=== PATIENT | female | born 1950 | race Caucasian/White ===

== ENCOUNTER → 2018-01-13 10:41 | Outpatient (CLI) | payer OTHER, SELFPAY ==
--- NOTE | 2018-01-14 08:42 | ONE_ITS ---
OCCUPATIONAL MEDICINE DATE OF SERVICE January 13, 2018 CHIEF COMPLAINT Bilateral wrist pain (left-hand dominant). ASSESSMENT 1. Bilateral carpal tunnel syndrome. 2. Bilateral epicondylitis. 3. Bilateral shoulder pain. PLAN 1. Work restrictions per work status form. 2. Bilateral wrist splints. 3. PT consult. ROM of shoulders, elbows, wrists and phalanges pending first appointment. 4. Ibuprofen 800 mg t.i.d. (42). Up To Date literature provided. 5. Followup in Occupational Medicine one week. Return to clinic sooner or ED, if condition worsens. More than 50% of this visit spent in the planning and coordination of care. Plan of care reviewed with the patient who verbalized understanding and agreement. 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 SUBJECTIVE Shama presents with complaints of bilateral wrist pain. Approximately five to six weeks ago, the beginning of November 2017, she noted a slight numb sensation and loss of feeling in her right hand. She purchased wrist splints from [employer] because she thought she might have carpal tunnel syndrome and had heard wrist splints were helpful. The splints helped quite a bit. Approximately two weeks later, she was using a machine that required multiple tight gripping motions of her right hand, as well as repetitive wrist rotation. The discomfort in her right hand increased to the point she began using her left hand instead. In spite of using her left hand, her right did not improve and her left began to yield discomfort within the week. Yesterday, she formally informed her employer of her discomfort, but states the employer has been aware since November 2017, when she began wearing the wrist splints. Currently the discomfort = 6/10 and is described as numb and tingling with electrical shocks, the right hand being worse than the left. Grasping the steering wheel of her vehicle and turning it increases discomfort. Shama has been self medicating with OTC arthritis medication, which has provided some relief. Shama denies prior wrist injury or surgery. She does note her shoulders began to bother her the spring. REVIEW OF SYSTEMS Denies headache, visual changes. Denies chest pain, palpitations. Denies shortness of breath, dyspnea. Denies GI/ distress. PAST MEDICAL HISTORY Vertigo sinus related. MEDICATIONS OTC arthritis medication, does not recall the name. ALLERGIES Sulfa. SOCIAL HISTORY ETOH - None. Tobacco - None. Exercise with employment. Single. Education - High school graduate. OBJECTIVE VITAL SIGNS: 140/90, 99.6 -- 64 -- 18. Height 5 feet 4.5 inches. Weight 154. BMI 26.4. PHQ-9 = 3. GENERAL: 67-year-old white female. Alert, oriented x3. Conversation appropriate. Appears fatigued. Presented with bilateral wrist splints in placed , removed for exam. CARDIAC: HRR. No murmurs or extra heart sounds. RESPIRATORY: Lungs bilaterally CTA. Respirations unlabored. UPPER EXTREMITIES: No evidence of edema, erythema or ecchymoses bilaterally. Rounded posture. Skin pink in color, warm and dry to touch. Brachial, radial, ulnar pulses 1+ bilaterally. Biceps, triceps, brachioradialis reflexes 1+ bilaterally. Biceps and triceps strength test strong and equal bilaterally; loose hand grasp bilaterally. Demonstrated ability to lift 1-pound weight without discomfort, however, discomfort noted with 3-pound weight bilaterally. SHOULDERS: Left ROM limited to 110 degrees, then complains of discomfort. Right ROM limited to 140 degrees, then with complaints of discomfort. Bony prominences and muscular nontender to palpation, except for left superior trapezius and periscapular region. ELBOWS: ROM within normal limits bilaterally. All bony prominences and muscular nontender to palpation, except for lateral epicondyle tendon and brachioradialis muscles bilaterally. Palpation of left brachioradialis muscle yielded significant discomfort. Positive Tinel at left triceps, negative right. HANDS/WRISTS - Wrists ROM limited to a few degrees due to discomfort. Phalanges ROM limited by discomfort. Positive Phalen's at wrist bilaterally. EDUCATION 1. symptoms appear related to repetitive use. 2. Conservative management is indicated and usually yields good results.
== END ==
PROVIDERS: PCP Physician Assistant Medical; Visit Provider Nurse Practitioner Family
DX: M25.531 Pain in right wrist (principal); M25.532 Pain in left wrist; G56.01 Carpal tunnel syndrome, right upper limb; G56.02 Carpal tunnel syndrome, left upper limb; M25.511 Pain in right shoulder; M77.11 Lateral epicondylitis, right elbow; M77.12 Lateral epicondylitis, left elbow; M25.512 Pain in left shoulder; Y99.0 Civilian activity done for income or pay; X50.3XXA Overexertion from repetitive movements, initial encounter
CPT/HCPCS: 99203; L3908

== ENCOUNTER → 2018-01-20 13:20 | Outpatient (CLI) | payer OTHER, SELFPAY ==
--- NOTE | 2018-01-23 12:24 | ONE_ITS ---
OCCUPATIONAL MEDICINE DATE OF SERVICE January 20, 2018 CHIEF COMPLAINT Bilateral wrist pain (left-hand dominant). ASSESSMENT 1. Bilateral carpal tunnel syndrome. 2. Bilateral epicondylitis. 3. Bilateral shoulder pain. PLAN 1. Work restrictions per work status form. 2. Bilateral wrist splints. 3. Continue PT. 4. Ibuprofen 800 mg t.i.d. 5. Occupational Medicine followup appointment in one week, return to clinic sooner if condition worsens. More than 50% of this visit spent in the planning and coordination of care. Plan of care reviewed with the patient who verbalized understanding and agreement. 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 SUBJECTIVE Shama presents for f/u of bilateral wrist pain, elbow and shoulder pain. States no improvement noted. Last night left work at 1900 four hours early because she was experiencing significant discomfort and awakened in discomfort three times during the night. This morning, she had finger swelling to the point she could only make a claw motion for a fist. For the past week, she has been performing duties that require lifting, holding, then placing small lightweight pieces. She informed her employer these repetitive duties caused her discomfort, but was not offered alternative duties, so she continued performing them. Has had two PT appointments, good relief noted with therapeutic modalities. Continues with ibuprofen t.i.d. uncertain if any relief due to significant discomfort. Has problems opening blister pack. Has difficulty holding a steering wheel and lifting small objects. Currently, the discomfort has diminished to 2/10 and the numb, tingling and electrical shocks continue, but to a lesser intensity. Right hand is worse than left. REVIEW OF SYSTEMS Denies headache, visual changes. Denies chest pain, palpitations. Denies shortness of breath, dyspnea. Denies GI/ distress. PAST MEDICAL HISTORY Vertigo sinus related. MEDICATIONS Ibuprofen 800 mg t.i.d. ALLERGIES Sulfa. SOCIAL HISTORY ETOH - None. Tobacco - None. Exercise with employment. Single. Education - High school graduate. OBJECTIVE GENERAL: 67-year-old white female. Allert, oriented x3. Conversation appropriate. Appears less fatigued, smiling. Presented with bilateral wrist splints in placed, which were removed for exam. UPPER EXTREMITIES: Rounded posture. Hand grasps remains loose, but stronger than last week. SHOULDERS: Left ROM limited to 90 degrees, then complains of discomfort. Right ROM limited to 130 degrees, then with complaints of discomfort. ELBOWS: ROM within normal limits bilaterally. Lateral epicondyle tendons and brachioradialis muscles remain tender bilaterally. Moderate palpation of left brachioradialis muscle yields significant discomfort. Tinel at left triceps now negative, remains negative on the right. HANDS/WRISTS: Wrists ROM improved, but remains limited to a few degrees. Phalanges - ROM almost within normal limits. Phalen positive at 15 seconds bilaterally. EDUCATION Discomfort is an indication to stop activities.
== END ==
PROVIDERS: PCP Physician Assistant Medical; Visit Provider Nurse Practitioner Family
DX: G56.01 Carpal tunnel syndrome, right upper limb (principal); G56.02 Carpal tunnel syndrome, left upper limb; M25.511 Pain in right shoulder; M25.512 Pain in left shoulder; M25.531 Pain in right wrist; M25.532 Pain in left wrist; M77.11 Lateral epicondylitis, right elbow; M77.12 Lateral epicondylitis, left elbow
CPT/HCPCS: 99214

== ENCOUNTER → 2018-01-26 13:06 | Outpatient (CLI) | payer OTHER, SELFPAY ==
--- NOTE | 2018-01-26 15:35 | ONE_ITS ---
OCCUPATIONAL MEDICINE DATE OF SERVICE: January 26, 2018 CHIEF COMPLAINT: Bilateral wrist, elbow, shoulder pain (left-hand dominant). ASSESSMENT: 1. Bilateral carpal tunnel syndrome. 2. Bilateral epicondylitis. 3. Bilateral shoulder pain. PLAN: 1. Work restrictions per Work Status Form - No work. 2. Bilateral wrist splints. 3. Continue PT. 4. Collaborate with PT. Message left for PT provider to contact [facility]. [facility]. 5. Ibuprofen 800 mg t.i.d. (42). 6. Follow-up Occupational Medicine in one week. Return to clinic sooner or ED if condition worsens. More than 50% of this visit spent in the planning and coordination of care. Plan of care reviewed with the patient who verbalized understanding and agreement. 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 SUBJECTIVE: Shama presents for follow-up of bilateral wrist, elbow, and shoulder pain. In spite of light duty continues to have significant discomfort currently being 8.5 /10. Previously the right hand was worse than the left, now both hands are bothersome. 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 Lightweight 2-inch rings are placed and removed in the machine which requires holding them with her fingers. A second task is loading a bar which requires placement of plug on one end. Since she has difficulty manipulating her fingers, Shama pounds the bar onto a hard surface where the plug is located. A third task is paperwork. Shama describes her work pace as really slow in order to minimize her discomfort. Shama states that she has discomfort with hand writing, holding onto small objects such as pens or eating utensils, brushing her hair, gripping motions and driving. Last night her sleep was disrupted and she awakened three to four times in discomfort. She continues with ibuprofen 800 mg t.i.d. with no relief. After her last PT appointment she has significant discomfort. REVIEW OF SYSTEMS: Denies headache, visual changes. Denies chest pain, palpitations. Denies shortness of breath, dyspnea. Denies GI/ distress. PAST MEDICAL HISTORY: Vertigo sinus related. MEDICATIONS: Ibuprofen 800 mg t.i.d. ALLERGIES: Sulfa. SOCIAL HISTORY: ETOH - None. Tobacco - None. Exercise with employment. Single. Education - High school graduate. OBJECTIVE: GENERAL - A 67-year-old white female, alert, oriented x3. Conversation appropriate. Fatigued appearance has returned. Bilateral wrist splints in place which were removed for exam. SHOULDER - Rounded posture. ROM within normal limits bilaterally, however discomfort noted after 90 degrees bilaterally. ELBOWS - ROM within normal limits bilaterally. Brachial pulses 1+ bilaterally. Further testing deferred due to discomfort. HANDS/WRISTSs - Wrists and phalanges ROM limited to a few degrees; unable to bring fingertips to palm of her hands. Radial and ulnar pulses 1+ bilaterally. Further testing deferred due to discomfort. EDUCATION 1. Light work activities seem to worsen discomfort. Will remove from work for one week, then reassess. 2. ROM of phalanges, wrists, elbows, shoulders, and cervical spine q.1h. while awake to minimize restrictions from disuse. 3. Will collaborate with PT regarding therapeutic modalities.
== END ==
PROVIDERS: PCP Physician Assistant Medical; Visit Provider Nurse Practitioner Family
DX: G56.01 Carpal tunnel syndrome, right upper limb (principal); G56.02 Carpal tunnel syndrome, left upper limb; M77.11 Lateral epicondylitis, right elbow; M77.12 Lateral epicondylitis, left elbow; M25.512 Pain in left shoulder; M25.511 Pain in right shoulder
CPT/HCPCS: 99214

== ENCOUNTER 2018-02-16 14:34 | Outpatient (CLI) | payer OTHER, SELFPAY ==
[2018-02-16 15:02] LABS: Abs Immature Grans 0.01 k/cumm (0.0-0.09); Absolute Basophil Count 0.03 k/cumm (0.0-0.2); Absolute Eosinophil Count 0.08 k/cumm (0.0-0.7); Absolute Lymphocyte Count 1.84 k/cumm (1.2-3.4); Basophils % 0.5; Eosinophils % 1.2; HCT 35.5 % (36.0-46.0); HGB 11.7 g/dL (12.0-15.5); Immature Grans % 0.2; Lymphocytes % 27.6; Mean Corpuscular Hemoglobin 28.5 pg (27.0-33.0); Mean Corpuscular Volume 86.4 fL (80-95); Mean Platelet Volume 8.7 fL (8.0-11.0); Neutrophils % 64.5; Platelet Count 243 x1000/uL (130-400); RBC 4.11 m/cumm (4.00-5.20); RBC Distribution Width 12.7 % (11.7-14.6); White Blood Cell Count 6.66 k/cumm (4.4-10.8)
[2018-02-16 16:24] LABS: ESR 23 MM/HR (0-30)
[2018-02-16 16:34] LABS: Folate > 20.0 ng/mL (8.6-20.0); Glucose 80 mg/dL (70-100); TSH 1.08 uIU/mL (0.358-3.74); Vitamin B12 421 pg/mL (193-986)
[2018-02-20 11:50] LABS: Rheumatoid Factor 21 IU/mL (<12.5)
[2018-02-20 16:03] LABS: ANA Interpretation Negative (NEGAT)
[2018-02-21 08:57] LABS: Titer <1:64 titer
== END 2018-02-16 14:54 ==
PROVIDERS: PCP Physician Assistant Medical; Visit Provider Nurse Practitioner Family
DX: G56.01 Carpal tunnel syndrome, right upper limb (principal); G56.02 Carpal tunnel syndrome, left upper limb; M77.01 Medial epicondylitis, right elbow; M77.02 Medial epicondylitis, left elbow; M25.511 Pain in right shoulder; M25.512 Pain in left shoulder
CPT/HCPCS: 36415; 82947; 85652; 82607; 82746; 84443; 85025; 86038; 86156; 86157; 86431

== ENCOUNTER 2018-05-04 11:30 | Day surgery (SDC) | payer OTHER, SELFPAY ==
[2018-05-04 11:39] VITALS: BP 159/83; PULSE 77; RESP 16; TEMP 35.6; O2SAT 98
[2018-05-04] MEDS: Lactated Ringers 1,000 ML 80 ML IV (12:05)
--- NOTE | 2018-05-04 14:03 | W.PM.DSUDISC ---
Discharge Plan Disposition Patient Disposition: HOME Condition: Good Discharge Details Reason For Visit: (L) CTS Attending Provider: Ankur Rodriguez Primary Care Provider: Breonna Loya V Home Meds and New Rx's Prescriptions: Continue acetaminophen [Tylenol Arthritis Pain] 650 mg tablet extended release 650 mg PO Q8H RF: 0 ibuprofen 800 mg tablet 800 mg PO TID RF: 0 nabumetone 750 mg tablet 750 mg PO BID RF: 0 glucosamine-chondroitin [Osteo Bi-Flex] 250-200 mg Tablet 1 tab PO DAILY RF: 0 Discharge Instructions Stand Alone Forms: Michael Bond Tunnel Jeannie Equipment/Supplies: Sling Activity:: Elevate Remove Dressings/Wound Care:: 48 hours Shower/Bathe:: 48 hours Diet:: As Tolerated Discharge Orders Discharge Orders: Discharge Order (Routine); Ordered 05/04/18 Ordered By: Ankur Rodriguez DS: Diagnosis Discharge Diagnosis (1) Carpal tunnel syndrome on both sides: Status: Acute
[2018-05-04] MEDS: Lidocaine 1% Pres-Free 5 ML VIAL (14:16)
[2018-05-04] MEDS: Ketorolac 30 MG/ML VIAL IVP (15:14)
[2018-05-04] MEDS: ACETAMINOPHEN 1,000 MG/100 ML BTL 400 MG IVPB (15:31)
[2018-05-04 15:33] VITALS: BP 142/81; PULSE 65; RESP 20; TEMP 36.8; O2SAT 100
--- NOTE | 2018-05-05 06:28 | W.PM.OP ---
Date of service: 05/04/18 Time of Service: 13:28 Operative Note DATE OF PROCEDURE: 05/04/18 PRE-OP DIAGNOSIS: Left Carpal Tunnel Syndrome POST-OP DIAGNOSIS: same PROCEDURE: Left Endoscopic Carpal Tunnel Release SURGEON: Ankur Rodriguez ANESTHESIA: MAC ESTIMATED BLOOD LOSS: 0 PATHOLOGY: none sent TOURNIQUET TIME: 6 COMPLICATIONS: None Patient was transported to: same day Patient's condition: stable Indications: I have seen Vikki in clinic for symptoms of carpal tunnel syndrome. The numbness, tingling, and pain limited function. Clinical exam findings with nerve conduction tests confirmed the diagnosis of carpal tunnel syndrome. Nonoperative measures such as bracing, time, activity modifications had been tried but disability and pain persisted. I discussed carpal tunnel release with the patient. I reviewed the risks of the procedure to include, but not limited to, bleeding, infection, pain, stiffness, incomplete release, damage to nerves or vessels, persistent numbness, recurrence. Despite these risks, the patient elected to proceed. Findings: There was tightened carpal tunnel. This was dilated and released successfully with the endoscopic with increased space within the tunnel. The antebrachial fascia was released proximally freeing the median nerve at the wrist. Procedure Description: Vikki was greeted in the preoperative holding area where the correct side was identified and marked. The consent was reviewed with the patient and signed. The history and physical was updated. All questions were answered. Vikki was taken back to the operating room. The patient was placed into the supine position on the operating room table with the left arm on an arm board. A nonsterile tourniquet was placed high onto the arm. All bony prominences were well padded. Prophylactic antibiotics in the form of [Cefazolin] were administered. The left arm was then prepped with Chloraprep and draped in a standard fashion with stockinette and extremity drape. A timeout to confirm correct identity, side and site, procedure, allergies, anesthesia, and medical concerns was performed. The surgical site was marked in the volar wrist creases in line with the radial border of the fourth ray. This area was anesthetized with approximately 6cc of 1% Lidocaine. The limb was then exsanguinated with an Esmarch. The skin was incised with a 15 blade, approximately 1cm. The skin only was cut and the deeper tissue was dissected bluntly with a tenotomy scissor, avoiding passing nerve and venous structures. The fascia was penetrated and opened bluntly. A two-prong skin hook was placed under this proximal fascial edge. A series of hamate finders were used to identify and dilate the carpal tunnel. Synovial elevator was used to free synovial attachments to the underside of the transverse carpal ligament. My thumb was kept in the palm to gerard the distal extent of the carpal tunnel and correctly position the hand. The Microaire endoscope was inserted without difficulty and without resistance. Excellent visualization showed horizontally running fibers of the transverse carpal ligament (TCL). The distal extent of the TCL was visualized and the end of the scope palpated with the thumb. The blade was elevated and withdrawn from distal to proximal. The TCL was split into two flaps. The endoscope was reinserted to confirm complete release and any remnant ligament was incised. The scope was withdrawn and the proximal aspect of the carpal tunnel was grossly inspected and appeared release with the median nerve visible. The antebrachial fascia at the level of the wrist was then freed from the overlying skin and then the underlying median nerve with blunt dissection. This was transected longitudinally for about 3cm proximal to the wrist incision. The wound was then irrigated with easy flow of irrigant distally and proximally. The incision was closed with a single 4-0 Nylon suture. The wound was dressed with Xeroform, Gauze, Kerlix and Yuriy. The tourniquet was deflated with the initial dressing and held with some pressure. Blood flow returned easily to all digits with capillary refill less than 2 seconds. The patient tolerated the procedure well and was returned to the Same Day Surgery area in a stable condition suffering no known complication.
== END 2018-05-04 16:40 | disposition home or self-care (01) ==
PROVIDERS: PCP Family Medicine; Visit Provider Student in an Organized Health Care Education/Training Program
PROC: 01N54ZZ Release Median Nerve, Percutaneous Endoscopic Approach (ICD-10-PCS; CPT 29848; principal; 2018-05-04 12:45)
DX: G56.02 Carpal tunnel syndrome, left upper limb (principal)
CPT/HCPCS: 29848; J0690; L3650

== ENCOUNTER 2018-05-26 11:30 | Day surgery (SDC) | payer OTHER, SELFPAY ==
[2018-05-26 11:55] VITALS: BP 157/97; PULSE 80; RESP 16; TEMP 36.8; O2SAT 99
[2018-05-26] MEDS: Lactated Ringers 1,000 ML 80 ML IV (12:15)
[2018-05-26] MEDS: Lidocaine 1% Multi-Dose 50 ML VIAL (13:39)
[2018-05-26] MEDS: Bupivacaine 0.5% Pres-Free 30 ML VIAL (13:44)
--- NOTE | 2018-05-26 13:50 | W.PM.DSUDISC ---
Discharge Plan Disposition Patient Disposition: HOME Condition: Good Discharge Details Reason For Visit: (R) CTS Attending Provider: Ankur Rodriguez Primary Care Provider: Paula Flor Home Meds and New Rx's Prescriptions: Continued acetaminophen [Tylenol Arthritis Pain] 650 mg tablet extended release 650 mg PO Q8H RF: 0 ibuprofen 800 mg tablet 800 mg PO TID RF: 0 nabumetone 750 mg tablet 750 mg PO BID RF: 0 hydrocodone-acetaminophen 5-325 mg tablet 1 tab PO Q4H MDD 20mg PRN (Reason: pain) Qty: 5 RF: 0 glucosamine-chondroitin [Osteo Bi-Flex] 250-200 mg Tablet 1 tab PO DAILY RF: 0 hydrocodone-acetaminophen 5-325 mg Tablet 1 tab PO Q4H PRN PRNQty: 5 RF: 0 hydrocodone-acetaminophen 5-325 mg tablet 1 tab PO Q4H PRN (Reason: pain) Qty: 5 RF: 0 Discharge Instructions Stand Alone Forms: Michael Bond Tunnel Release Referrals: Ankur Rodriguez MD [ [facility] STAFF PHYSICIAN] - Equipment/Supplies: Sling Activity:: Elevate Remove Dressings/Wound Care:: 72 hours Shower/Bathe:: 72 hours Diet:: As Tolerated Discharge Orders Discharge Orders: Discharge Order (Routine); Ordered 05/26/18 Ordered By: Ankur Rodriguez DS: Diagnosis Discharge Diagnosis (1) Carpal tunnel syndrome on both sides: Status: Acute
[2018-05-26 14:16] VITALS: BP 149/86; PULSE 80; RESP 16; TEMP 36.6; O2SAT 96
[2018-05-26] MEDS: Acetaminophen 325 MG TAB 650 MG PO (14:19)
--- NOTE | 2018-05-26 20:41 | ROE_ITS ---
Date of service: 05/26/18 Time of Service: 14:38 Operative Note DATE OF PROCEDURE: 05/26/18 PRE-OP DIAGNOSIS: Right Carpal Tunnel Syndrome POST-OP DIAGNOSIS: same PROCEDURE: Right Endoscopic Carpal Tunnel Release SURGEON: Ankur Rodriguez ANESTHESIA: MAC ESTIMATED BLOOD LOSS: 0 PATHOLOGY: none sent TOURNIQUET TIME: 6 COMPLICATIONS: None Patient was transported to: same day Patient's condition: stable Indications: I have seen Vikki in clinic for symptoms of carpal tunnel syndrome. The numbness, tingling, and pain limited function. Clinical exam findings with nerve conduction tests confirmed the diagnosis of carpal tunnel syndrome. Nonoperative measures such as bracing, time, activity modifications had been tried but disability and pain persisted. I discussed carpal tunnel release with the patient. I reviewed the risks of the procedure to include, but not limited to, bleeding, infection, pain, stiffness, incomplete release, damage to nerves or vessels, persistent numbness, recurrence. Despite these risks, the patient elected to proceed. Findings: There was tightened carpal tunnel. This was dilated and released successfully with the endoscopic with increased space within the tunnel. The antebrachial fascia was released proximally freeing the median nerve at the wrist. Procedure Description: Vikki was greeted in the preoperative holding area where the correct side was identified and marked. The consent was reviewed with the patient and signed. The history and physical was updated. All questions were answered. Vikki was taken back to the operating room. The patient was placed into the supine position on the operating room table with the right arm on an arm board. A nonsterile tourniquet was placed high onto the arm. All bony prominences were well padded. Prophylactic antibiotics in the form of cefazolin were administered. The right arm was then prepped with Chloraprep and draped in a standard fashion with stockinette and extremity drape. A timeout to confirm correct identity, side and site, procedure, allergies, anesthesia, and medical concerns was performed. The surgical site was marked in the volar wrist creases in line with the radial border of the fourth ray. This area was anesthetized with approximately 6cc of 1% Lidocaine. The limb was then exsanguinated with an Esmarch. The skin was incised with a 15 blade, approximately 1cm. The skin only was cut and the deeper tissue was dissected bluntly with a tenotomy scissor, avoiding passing nerve and venous structures. The fascia was penetrated and opened bluntly. A two-prong skin hook was placed under this proximal fascial edge. A series of hamate finders were used to identify and dilate the carpal tunnel. Synovial elevator was used to free synovial attachments to the underside of the transverse carpal ligament. My thumb was kept in the palm to gerard the distal extent of the carpal tunnel and correctly position the hand. The Microaire endoscope was inserted without difficulty and without resistance. Excellent visualization showed horizontally running fibers of the transverse carpal ligament (TCL). The distal extent of the TCL was visualized and the end of the scope palpated with the thumb. The blade was elevated and withdrawn from distal to proximal. The TCL was split into two flaps. The endoscope was reinserted to confirm complete release and any remnant ligament was incised. The scope was withdrawn and the proximal aspect of the carpal tunnel was grossly inspected and appeared release with the median nerve visible. The antebrachial fascia at the level of the wrist was then freed from the overlying skin and then the underlying median nerve with blunt dissection. This was transected longitudinally for about 3cm proximal to the wrist incision. The wound was then irrigated with easy flow of irrigant distally and proximally. The incision was closed with a single 4-0 Nylon suture. The wound was dressed with Xeroform, Gauze, Kerlix and Yuriy. The tourniquet was deflated with the initial dressing and held with some pressure. Blood flow returned easily to all digits with capillary refill less than 2 seconds. The patient tolerated the procedure well and was returned to the Same Day Surgery area in a stable co ndition suffering no known complication.
== END 2018-05-26 14:50 | disposition home or self-care (01) ==
PROVIDERS: PCP Physician Assistant Medical; Visit Provider Student in an Organized Health Care Education/Training Program
PROC: 01N54ZZ Release Median Nerve, Percutaneous Endoscopic Approach (ICD-10-PCS; CPT 29848; principal; 2018-05-26 13:00)
DX: G56.01 Carpal tunnel syndrome, right upper limb (principal)
CPT/HCPCS: 29848; J0690; J1885; J2250; L3650

== ENCOUNTER 2018-07-03 15:34 | Outpatient (CLI) | payer OTHER, SELFPAY ==
--- NOTE | 2018-07-03 15:22 | DI.RAD_ITS ---
SYMPTOM/DIAGNOSIS: BILAT SHOULDER PAIN LEFT SHOULDER: There is mild spurring at the AC joint and glenohumeral joint. The glenohumeral joint space is well maintained. The humeral head is normally positioned. No tendon or joint space calcifications are seen. There is an upper thoracic scoliosis. IMPRESSION: Mid degenerative changes. RIGHT SHOULDER: There is mild spurring at the acromion and rim of the glenoid. The glenohumeral joint space is well maintained. The humeral head is normally positioned. No tendon or joint space calcifications are seen. IMPRESSION: Mild degenerative changes.
== END 2018-07-03 15:54 ==
PROVIDERS: Visit Provider Physician Assistant Surgical
DX: M25.511 Pain in right shoulder (principal); M25.512 Pain in left shoulder; M19.011 Primary osteoarthritis, right shoulder; M19.012 Primary osteoarthritis, left shoulder; G89.29 Other chronic pain
CPT/HCPCS: 73030

== ENCOUNTER 2018-10-18 09:56 | Emergency (ER) | payer OTHER, SELFPAY ==
[2018-10-18 10:04] VITALS: BP 171/82; PULSE 86; RESP 20; TEMP 36.8; O2SAT 98
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
[2018-10-18 12:34] VITALS: BP 171/82; PULSE 86; RESP 20; TEMP 36.8; O2SAT 98
== END 2018-10-18 12:35 | disposition home or self-care (01) ==
PROVIDERS: Emergency Provider Student in an Organized Health Care Education/Training Program; PCP Family Medicine
DX: S16.1XXA Strain of muscle, fascia and tendon at neck level, initial encounter (principal); S39.012A Strain of muscle, fascia and tendon of lower back, initial encounter; V43.52XA Car driver injured in collision with other type car in traffic accident, initial encounter
CPT/HCPCS: 99284; 72110; 72125

== ENCOUNTER 2018-12-19 14:03 | Outpatient (REF) | payer OTHER, SELFPAY ==
[2018-12-21 10:46] LABS: Lyme Ab w Rflx to Lyme Confirm Negative
== END 2018-12-19 14:23 ==
LOC: NCHCN 14:03
PROVIDERS: PCP Family Medicine; Visit Provider Nurse Practitioner Family
DX: Z00.00 Encounter for general adult medical examination without abnormal findings (principal); G56.00 Carpal tunnel syndrome, unspecified upper limb; M79.671 Pain in right foot; M25.562 Pain in left knee; M25.50 Pain in unspecified joint; E78.5 Hyperlipidemia, unspecified
CPT/HCPCS: 86618

== ENCOUNTER 2018-12-21 01:30 | Outpatient (CLI) | payer OTHER, SELFPAY ==
--- NOTE | 2018-12-21 10:20 | DI.RAD_ITS ---
SYMPTOM/DIAGNOSIS: POLYARTHRALGIAS M25.50, PAIN IN BALL OF FOOT, ? ARTHRITIS RIGHT FOOT: There is no evidence of fracture or bony erosions. There are degenerative changes of the first MTP joint with spurring laterally. No soft tissue mass or soft tissue calcification is seen. The bones appear normally mineralized. IMPRESSION: Mild first MTP joint degenerative changes.
== END 2018-12-21 01:50 ==
PROVIDERS: PCP Nurse Practitioner Family; Visit Provider Nurse Practitioner Family
DX: M25.50 Pain in unspecified joint (principal); M79.671 Pain in right foot
CPT/HCPCS: 73630

== ENCOUNTER 2018-12-27 11:37 | Outpatient (REF) | payer OTHER, SELFPAY ==
[2018-12-27 20:30] LABS: Calculated LDL 134 mg/dL; Cholesterol 196 mg/dL (50-200); HDL Cholesterol 43 mg/dL (40-60); Triglyceride 97 mg/dL (30-150)
== END 2018-12-27 11:57 ==
LOC: NCHCN 11:37
PROVIDERS: PCP Nurse Practitioner Family; Visit Provider Nurse Practitioner Family
DX: E78.5 Hyperlipidemia, unspecified (principal)
CPT/HCPCS: 80061; 83721

== ENCOUNTER 2020-06-18 14:55 | Outpatient (REF) | payer BC, SELFPAY ==
[2020-06-18 15:47] LABS: Calculated LDL 152 mg/dL (<100); Cholesterol 218 mg/dL (<200); Glucose 78 mg/dL (74-106); HDL Cholesterol 51 mg/dL (40-60); Triglyceride 79 mg/dL (<150)
== END 2020-06-18 15:15 ==
LOC: NCHCN 14:55
PROVIDERS: PCP Nurse Practitioner Family; Visit Provider Nurse Practitioner Family
DX: E78.5 Hyperlipidemia, unspecified (principal); Z00.00 Encounter for general adult medical examination without abnormal findings
CPT/HCPCS: 80061; 82947

== ENCOUNTER 2020-06-25 01:54 | Outpatient (CLI) | payer BC, SELFPAY ==
--- NOTE | 2020-06-25 11:23 | DI.MAMMO_ITS ---
EXAM: MG MAMMO SCREENING CLINICAL HISTORY: SCREENING,[facility],Z00.00 TECHNIQUE: Mammograms were interpreted according to the usual protocol including computer analysis w Parse CAD system, tomosynthesis and C-view imaging. COMPARISON: 2018 FINDINGS: The breasts are composed of heterogeneously dense fibroglandular densities, Breast Density category C . No suspicious masses or suspicious microcalcifications are seen. No skin thickening or abnormal axillary lymph nodes are seen. There has been no significant change from prior exams. IMPRESSION: BI-RADS Category 1, Negative mammogram. Yearly screening mammography is recommended. Breast Density Category C, heterogeneously Dense. The mammogram demonstrates the patient's breast tissue is dense. Dense breast tissue is very common a nd is not abnormal but dense breast tissue can make it harder to find cancer on a mammogram. Also, de nse breast tissue may increase breast cancer risk. This information about the result of the mammogram report was provided to the patient to raise their awareness. Use this report when you speak with the patient about their risks for breast cancer, which includes their family history. At that time, you may recommend additional screening tests (Ultrasound or MRI) as they might be useful based on their r isk. A negative radiographic report should not delay biopsy if a dominant or clinically suspicious mass is present. Up to ten percent of cancers are not identified on mammography. A negative report may reinforce clinical impression. Adenosis and dense breasts may obscure an underlying neoplasm. False positive reports average 6 to 10%.
== END 2020-06-25 02:14 ==
PROVIDERS: PCP Nurse Practitioner Family; Visit Provider Nurse Practitioner Family
DX: Z00.00 Encounter for general adult medical examination without abnormal findings (principal); Z12.31 Encounter for screening mammogram for malignant neoplasm of breast
CPT/HCPCS: 77063; 77067

== ENCOUNTER 2020-10-31 04:07 | Outpatient (CLI) | payer BC, SELFPAY ==
--- NOTE | 2020-10-31 10:59 | DI.RAD_ITS ---
Exam(s) XR FOOT LT COMPLETE EXAM: XR FOOT LT COMPLETE CLINICAL HISTORY: LT FOOT PAIN, PAIN AND SWELLING BALL OF FOOT BETWEEN 1,2 DIGIT PLANTAR SURF. TECHNIQUE: 2D digital imaging was performed. COMPARISON: No exams were available for comparison FINDINGS: There is no acute fracture or dislocation. Degenerative changes are present with joint space narrowi ng and periarticular spurring noted at the 1st MTP joint and the articulation of the 1st metatarsal h ead and adjacent sesamoid. Bones are normally mineralized. No radiopaque foreign bodies are seen in the soft tissues. No suspicious soft tissue calcifications are present. No destructive or erosive changes are seen. IMPRESSION: 1. Degenerative changes of the left foot. 2. No soft tissue abnormalities identified. If there is concern for soft tissue mass, an MRI should be considered for further evaluation. DATA REPOSITORY: RADIATION DOSE DELIVERED:
== END 2020-10-31 04:27 ==
PROVIDERS: PCP Nurse Practitioner Family; Visit Provider Nurse Practitioner Family
DX: M79.672 Pain in left foot (principal); M19.072 Primary osteoarthritis, left ankle and foot
CPT/HCPCS: 73630

== ENCOUNTER 2020-11-10 16:13 | Outpatient (REF) | payer BC, SELFPAY ==
[2020-11-11 11:56] LABS: COVID-19 RT-PCR UVMMC Result Negative (Negative)
== END 2020-11-10 16:14 | disposition home or self-care (01) ==
LOC: LBN 16:13
PROVIDERS: PCP Nurse Practitioner Family; Visit Provider Nurse Practitioner Family
DX: J02.9 Acute pharyngitis, unspecified (principal); Z20.822 Contact with and (suspected) exposure to COVID-19
CPT/HCPCS: U0003; 87070

== ENCOUNTER 2021-03-27 18:43 | Outpatient (REF) | payer MEDICARE, SELFPAY ==
[2021-03-29 10:32] LABS: COVID-19 RT-PCR UVMMC Result Negative (Negative)
== END 2021-03-27 18:44 | disposition home or self-care (01) ==
LOC: LBN 18:43
PROVIDERS: PCP Nurse Practitioner Family; Visit Provider Nurse Practitioner Family
DX: Z20.822 Contact with and (suspected) exposure to COVID-19 (principal); H92.09 Otalgia, unspecified ear; J02.9 Acute pharyngitis, unspecified
CPT/HCPCS: U0003; U0005; 87070

== ENCOUNTER 2021-05-06 08:34 | Outpatient (REF) | payer MEDICARE, SELFPAY ==
[2021-05-06 15:35] LABS: Calculated LDL 186 mg/dL (<100); Cholesterol 257 mg/dL (<200); Glucose 89 mg/dL (74-106); HDL Cholesterol 50 mg/dL (40-60); Triglyceride 105 mg/dL (<150)
== END 2021-05-06 08:35 | disposition home or self-care (01) ==
LOC: NCHCN 08:34
PROVIDERS: PCP Nurse Practitioner Family; Visit Provider Nurse Practitioner Family
DX: E78.5 Hyperlipidemia, unspecified (principal); Z00.00 Encounter for general adult medical examination without abnormal findings
CPT/HCPCS: 80061; 82947

== ENCOUNTER 2021-07-17 12:40 | Outpatient (REF) | payer MEDICARE, SELFPAY ==
--- NOTE | 2021-07-17 09:30 | SKI_PTH ---
PATIENT: Vikki Lewis LOC: [facility] U#:[id number] AGE/SX: 70/F ROOM: RE07/17/[address]: OFELIA Cobian : 1950 BED: DIS: 07/17/2021 SPEC #: [id number] RECD: 07/17/21 18:16 STATUS: TIERNEY REShena #: [id number] TARAS: 07/17/21 09:[address]: Chris Morgan DEPT: Surgical Specimen RECD BY: Maryellen Martines ENTERED: 07/17/21 18:16 SP TYPE: GINA CARROLL DR: Emma Ochoa Tissues: 1 - SKIN BIOPSY(SHAVE/PUNCH) Procedures: SKIN LEVEL 4 Comments: [id number]
== END 2021-07-17 12:41 | disposition home or self-care (01) ==
LOC: LBN 12:40
PROVIDERS: PCP Nurse Practitioner Family; Visit Provider Physician Assistant
DX: D03.59 Melanoma in situ of other part of trunk (principal)
CPT/HCPCS: 88305

== ENCOUNTER 2021-11-03 08:04 | Outpatient (REF) | payer MEDICARE, SELFPAY ==
[2021-11-03 15:53] LABS: Calculated LDL 155 mg/dL (<100); Cholesterol 230 mg/dL (<200); Glucose 84 mg/dL (74-106); HDL Cholesterol 49 mg/dL (40-60); Triglyceride 134 mg/dL (<150)
== END 2021-11-03 08:05 | disposition home or self-care (01) ==
LOC: NCHCN 08:04
PROVIDERS: PCP Nurse Practitioner Family; Visit Provider Nurse Practitioner Family
DX: E78.5 Hyperlipidemia, unspecified (principal)
CPT/HCPCS: 80061; 82947

== ENCOUNTER 2022-07-07 03:06 | Outpatient (CLI) | payer MEDICARE, SELFPAY ==
--- NOTE | 2022-07-07 12:51 | DI.MAMMO_ITS ---
Exam(s) MAMMO SCREENING EXAM: MAMMO SCREENING CLINICAL HISTORY: SCREENING FOR BREAST CANCER Z12.39 TECHNIQUE: Bilateral full field digital CC and MLO mammographic images were obtained with 3D tomosyn thesis and utilizing computer aided detection (CAD). COMPARISON: Available for comparison. FINDINGS: Masses/Architectural Distortion: None seen. Microcalcifications: No suspicious pleomorphic-type are seen. Skin Thickening/Nipple Retraction: None. IMPRESSION: 1. No significant interval change with no specific features of malignancy noted. 2. Unless there is more urgent need, screening mammography is recommended, as per [place] [employer] guidelines. BI-RADS Category 1 - Negative Breast Density - Category C - Heterogeneously dense Breast density category C or D implies that the patient has dense breast tissue. Dense breast tissue is very common and is not abnormal but dense breast tissue can make it harder to find cancer on a ma mmogram. Also, dense breast tissue may increase their breast cancer risk. This information about the result of the mammogram report was provided to the patient to raise their awareness. Use this report when you speak with the patient about their risks for breast cancer, which includes their family hist ory. At that time, you may recommend for more screening tests (Ultrasound or MRI) as they might be us eful based on their risk. A negative radiographic report should not delay biopsy if a dominant or clinically suspicious mass is present. Up to ten percent of cancers are not identified on mammography. A negative report may reinforce clinical impression. Adenosis and dense breasts may obscure an underlying neoplasm. False positive reports average 6 to 10%. Patient will receive a letter notifying them of these results.
== END 2022-07-07 03:26 ==
LOC: DI 03:07
PROVIDERS: PCP Nurse Practitioner Family; Visit Provider Nurse Practitioner Family
DX: Z12.31 Encounter for screening mammogram for malignant neoplasm of breast (principal); R92.8 Other abnormal and inconclusive findings on diagnostic imaging of breast
CPT/HCPCS: 77063; 77067

== ENCOUNTER 2022-11-11 11:23 | Outpatient (REF) | payer MEDICARE, SELFPAY ==
[2022-11-11 16:28] LABS: Calculated LDL 114 mg/dL (<100); Cholesterol 183 mg/dL (<200); Glucose 92 mg/dL (74-106); HDL Cholesterol 42 mg/dL (40-60); Triglyceride 139 mg/dL (<150)
== END 2022-11-11 11:24 | disposition home or self-care (01) ==
LOC: NCHCN 11:23
PROVIDERS: PCP Nurse Practitioner Family; Visit Provider Nurse Practitioner Family
DX: E78.5 Hyperlipidemia, unspecified (principal); R79.89 Other specified abnormal findings of blood chemistry
CPT/HCPCS: 80061; 82947

== ENCOUNTER 2023-08-25 17:56 | Outpatient (REF) | payer MEDICARE, SELFPAY ==
[2023-08-25 19:30] LABS: ALT 21 U/L (14-59); AST 17 U/L (15-37); Albumin 3.6 g/dL (3.4-5.0); Alkaline Phosphatase 102 U/L (46-116); Anion Gap 9.7 mmol/L (3-11); BUN 27 mg/dL (7-18); Bilirubin, Total 0.5 mg/dL (0.2-1.0); CO2 29.3 mmol/L (21.0-32.0); Calcium 9.1 mg/dL (8.5-10.1); Calculated LDL 72 mg/dL (<100); Chloride 107 mmol/L (98-107); Cholesterol 187 mg/dL (<200); Estimated GFR 60.23 (mL/min/1.73m2); Glucose 124 mg/dL (74-106); HDL Cholesterol 44 mg/dL (40-60); Potassium 4.5 mmol/L (3.5-5.1); Sodium 146 mmol/L (136-145); TSH (W/Ref FT4) 1.16 uIU/mL (0.36-3.74); Total Protein 7.5 g/dL (6.4-8.2); Triglyceride 359 mg/dL (<150)
== END 2023-08-25 17:57 | disposition home or self-care (01) ==
LOC: NCHCN 17:56
PROVIDERS: PCP Nurse Practitioner Family; Referring Provider Nurse Practitioner Family; Visit Provider Nurse Practitioner Family
DX: E78.5 Hyperlipidemia, unspecified (principal)
CPT/HCPCS: 80053; 80061; 84443

== ENCOUNTER → 2023-10-06 00:28 | Outpatient (CLI) | payer MEDICARE, SELFPAY ==
--- NOTE | 2023-10-06 | DI.DEXA_ITS ---
Exam(s) XR DEXA BONE DENSITY W/WO MADELAINE EXAM: XR DEXA BONE DENSITY W/WO MADELAINE CLINICAL HISTORY: Z78.0 Asymptomatic menopausal TECHNIQUE: Hologic Horizon C densitometer analysis of left hip, lumbar spine and right forearm. La teral survey image of the thoracic and lumbar spine. COMPARISON: DX MADELAINE from 08/14/2008 CR XR lumbar spine complete from 10/18/[address] CERVICAL SPINE WO from 10/18/2018 FINDINGS: Lateral view of the thoracic and lumbar spine shows no evidence of compression fractures. The midt horacic vertebral bodies are not well seen. Compression fractures in this region the are not exclude d. Bone mineral density measurements of the lumbar spine correspond to a total T-score of -0.5, in the normal range. This represents a 2.3 percent increase from 2008. Findings may be in part secondary t o increased degenerative changes at L2-3. Bone mineral density measurements of the left hip correspond to a total T-score of -1.3, in the osteo penic range. This represents a decrease of 9.7 percent when compared with 2008. The femoral neck T- score is -2.2, in the osteopenic range.. Theright forearm bone mineral density measurements correspond to a T-score of the distal 3rd of -2.9 , in the osteoporotic range. The forearm was not analyzed in 2008. IMPRESSION: Normal bone mineral density of the spine. Osteopenia of the hip. Osteoporosis of the forearm.
== END ==
PROVIDERS: PCP Nurse Practitioner Family; Visit Provider Nurse Practitioner Family
DX: Z78.0 Asymptomatic menopausal state (principal); Z13.820 Encounter for screening for osteoporosis; M81.0 Age-related osteoporosis without current pathological fracture
CPT/HCPCS: 77080

== ENCOUNTER 2024-10-01 00:30 | Outpatient (CLI) | payer MEDICARE, SELFPAY ==
--- NOTE | 2024-10-01 11:46 | DI.MAMMO_ITS ---
Exam(s) MAMMO SCREENING EXAM: MAMMO SCREENING CLINICAL HISTORY: Screening, Z12.31. TECHNIQUE: Bilateral full field digital CC and MLO mammographic images were obtained with 3D tomosyn thesis and utilizing computer aided detection (CAD). COMPARISON: Prior mammograms were reviewed. FINDINGS: There has been no significant change in the appearance and distribution of the fibroglandular tissue. There are no new spiculated masses nor malignant appearing microcalcification groups. There is no significant architectural distortion nor skin thickening-retraction. IMPRESSION: No radiographic evidence of malignancy. BI-RADS Category 1 - Negative Breast Density - Category C - The breast are heterogeneously dense, which may obscure small masses. Breast density Category C or D implies that the patient has dense breast tissue. Dense breast tissue can make it harder to find cancer on a mammogram. Dense breast tissue is also associated with an incr eased risk of breast cancer. This information about the result of the mammogram report was provided to the patient to raise their awareness. Use this report when you speak with the patient about their risks for breast cancer, which includes their family history. At that time, you may recommend additional screening tests (Ultrasoun d or MRI) as these tests may add significant information. A negative radiographic report should not delay biopsy if a dominant or clinically suspicious mass is present. Up to ten percent of cancers are not identified on mammography. A negative report may reinforce clinical impression. Adenosis and dense breasts may obscure an underlying neoplasm. False positive reports average 6 to 10%. Patient will receive a letter notifying them of these results.
== END 2024-10-01 00:50 ==
LOC: DI 00:31
PROVIDERS: PCP Nurse Practitioner Family; Visit Provider Nurse Practitioner Family
DX: Z12.31 Encounter for screening mammogram for malignant neoplasm of breast (principal)
CPT/HCPCS: 77063; 77067

== ENCOUNTER 2024-10-01 11:52 | Outpatient (CLI) | payer MEDICARE, SELFPAY ==
[2024-10-01 13:53] LABS: ALT 108 U/L (14-59); AST 89 U/L (15-37); Albumin 3.8 g/dL (3.4-5.0); Alkaline Phosphatase 111 U/L (46-116); Anion Gap 10.9 mmol/L (3-11); BUN 20 mg/dL (7-18); Bilirubin, Total 0.8 mg/dL (0.2-1.0); CO2 28.1 mmol/L (21.0-32.0); Calcium 9.7 mg/dL (8.5-10.1); Calculated LDL 100 mg/dL (<100); Chloride 103 mmol/L (98-107); Cholesterol 174 mg/dL (<200); Estimated GFR 59.86 (mL/min/1.73m2); Glucose 91 mg/dL (74-106); HDL Cholesterol 50 mg/dL (>or=50); Potassium 4.6 mmol/L (3.5-5.1); Sodium 142 mmol/L (136-145); Total Protein 7.8 g/dL (6.4-8.2); Triglyceride 120 mg/dL (<150)
== END 2024-10-01 11:53 | disposition home or self-care (01) ==
LOC: LBO 11:53
PROVIDERS: PCP Nurse Practitioner Family; Visit Provider Nurse Practitioner Family
DX: E78.5 Hyperlipidemia, unspecified (principal)
CPT/HCPCS: 36415; 80053; 80061

== ENCOUNTER 2024-11-14 14:04 | Outpatient (REF) | payer MEDICARE, SELFPAY ==
[2024-11-14 15:54] LABS: HCT 40.1 % (36.0-46.0); HGB 12.9 g/dL (11.2-15.7); MCHC 32.2 % (32.0-36.0); MCV 84 fL (80-95); MPV 9.5 fL (8.0-11.0); Platelet Count 319 10^3/uL (130-400); RBC 4.77 10^6/uL (3.93-5.22); RDW 14.2 % (11.7-14.6); RDW-SD 43.7 fL; WBC 6.84 10^3/uL (4.4-10.8)
[2024-11-14 17:53] LABS: ALT 43 U/L (14-59); AST 42 U/L (15-37); Albumin 3.4 g/dL (3.4-5.0); Alkaline Phosphatase 107 U/L (46-116); Anion Gap 11.6 mmol/L (3-11); BUN 18 mg/dL (7-18); Bilirubin, Total 0.6 mg/dL (0.2-1.0); CO2 26.4 mmol/L (21.0-32.0); CREATININE 0.9 mg/dL (0.55-1.02); Calcium 9.1 mg/dL (8.5-10.1); Chloride 105 mmol/L (98-107); Estimated GFR 67.92 (mL/min/1.73m2); Glucose 115 mg/dL (74-106); Potassium 3.8 mmol/L (3.5-5.1); Sodium 143 mmol/L (136-145); TSH 1.03 uIU/mL (0.36-3.74); Total Protein 7.8 g/dL (6.4-8.2)
[2024-11-15 10:21] LABS: HBs Antibody, Quant <3.1 mIU/mL (See Note); Hepatitis B Surface Ab Negative (See Note)
[2024-11-15 10:28] LABS: Hepatitis B Surface Ag Negative (Negative)
[2024-11-15 11:04] LABS: Hepatitis C Ab w Rflx HCV PCR Negative (Negative)
[2024-11-15 11:26] LABS: Hep B Core Antibody Negative (Negative)
== END 2024-11-14 14:05 | disposition home or self-care (01) ==
LOC: NCHCN 14:04
PROVIDERS: PCP Nurse Practitioner Family; Visit Provider Nurse Practitioner Family
DX: E78.5 Hyperlipidemia, unspecified (principal)
CPT/HCPCS: 80053; 85027; 86704; 86706; 86803; 87340; 84443